=== PATIENT | male | born 1970 | race Caucasian/White ===

== ENCOUNTER → 2024-06-12 07:51 | Outpatient (REF) | payer BC, SELFPAY | LOC: EMG 07:51 | PROVIDERS: ATTENDING PHYSICIAN Physician Assistant | DX: R20.2 Paresthesia of skin (principal); R20.0 Anesthesia of skin; R25.2 Cramp and spasm | CPT/HCPCS: 95886; 95913 ==

== ENCOUNTER → 2024-07-22 10:18 | Outpatient (REF) | payer BC, SELFPAY | LOC: PAVMRI 10:18 | PROVIDERS: ATTENDING PHYSICIAN Physician Assistant | DX: R25.3 Fasciculation (principal); M62.838 Other muscle spasm; M62.81 Muscle weakness (generalized) | CPT/HCPCS: 70553; A9575 ==

== ENCOUNTER → 2024-11-12 08:42 | Outpatient (REF) | payer BC, SELFPAY | LOC: PAVMRI 08:42 | PROVIDERS: ATTENDING PHYSICIAN Psychiatry & Neurology Neurology; FAMILY PHYSICIAN Family Medicine | DX: M54.12 Radiculopathy, cervical region (principal) | CPT/HCPCS: 72156; A9575 ==